=== PATIENT | female | born 2000 | race Caucasian/White ===

== ENCOUNTER 2024-01-10 07:46 | Emergency (ER) | payer BC, SELFPAY ==
[2024-01-10 07:48] VITALS: BP 127/96
--- NOTE | 2024-01-10 08:00 | ED.GENMED ---
History of Present Illness
General
Chief Complaint: Fainting/Passed Out
Source: patient
Exam Limitations: none
Time Seen by Provider: 01/10/24 07:57
Nursing documentation reviewed up to this point in time: agreed with
Travel History
Have you had any contact with someone who has COVID-19?: No
Do you have any symptoms of coronavirus? Fever > 100 degrees, chills, cough, shortness of breath, sore throat, loss of taste or smell, muscle aches, or headache?: No
History of Present Illness
History of Present Illness:
23-year-old female with a past medical history of POTS, irritable bowel syndrome, median arcuate ligament syndrome, Flor-Danlos syndrome, mast cell activation syndrome, anxiety and depression who presents to the emergency department for evaluation
after syncopal event. 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 She says that for the past few days she has been having increased palpitations but she has attributed this to increased anxiety recently. She says that she has been dealing with some
nausea more than usual. Today when she arrived at work she was feeling nauseated and took a dose of Zofran. While she was getting report she said she began to feel dizzy and had a syncopal event. She did fall the ground but fortunately did not
hit her head or injure herself she says. She was brought down to the emergency to be assessed. She says she has had some tightness in her chest since the episode. She denies any shortness of breath. Denies any recent vomiting or diarrhea.
Denies any abdominal pain. Denies any headache. She denies any other complaints. She says she does have frequent episodes of dizziness related to her POTS.
Past History
Past History
ED Past Medical History: Other (POTS), Other (Kidney stones) and Other (Arcuate ligament syndrome, chronic abdominal pain)
ED Past Surgical History: Other (wisdom teeth)
Social History
Tobacco: Non-smoker
Alcohol: None
Drug: None
Personal: Single
Living: with family
Employment: Employed
Family History
Family History: Other (Gallstones)
Review of Systems
Review of Systems
All Other Systems: ROS reviewed and negative except as documented in HPI and ROS
Constitutional: Denies fever or chills
EENT: Denies sore throat or runny nose
Respiratory: Denies cough or trouble breathing
Cardiac: Reports chest pain, palpitations and syncope; Denies diaphoresis
ABD/GI: Reports nausea; Denies abdominal pain, vomiting or diarrhea
: Denies flank pain
Musculoskeletal: Denies neck pain or back pain
Neurological: Denies headache, weakness or numbness
Phy Exam
Physical Exam
Physical Exam:
General: Awake, alert, oriented x3; no acute distress
Head: Normocephalic, atraumatic
Eyes: Conjunctiva normal, pupils equal round and reactive to light bilaterally
Throat: Airway intact, handling secretions
Neck: Trachea midline, supple without meningismus
Lungs: Clear to auscultation bilaterally, no wheezing, rales, rhonchi
Heart: Regular rate and rhythm, no murmurs, gallops, or rubs
Abd: Soft, non distended, nontender
Neuro: Cranial nerves grossly intact, speech fluid
Skin: no rash
Extremities: No edema in extremities, equal pulses in all extremities
Scores
Heart Failure Risk
Heart Failure Risk Score: Not Applicable
Heart Score for Chest Pain Patients
STEMI patient?: Not applicable
Withdrawal Assessment of Alcohol
Withdrawal Assessment Completed?: Not applicable
Course
Orders/Labs/Results
Orders:
Orders
01/10/24 07:52
EKG [Electrocardiogram (*1)] Urgent
Reason for Study: Syncope
EKG- Treatment ONCE
01/10/24 07:57
Test Result ONCE
01/10/24 08:14
CR Chest - 2 Views Urgent
Comment:
Reason For Exam: syncope, chest pain
01/10/24 08:35
Complete Blood Count/With Diff Urgent
Comprehensive Metabolic Panel Urgent
D-Dimer Urgent
HCG, Serum Qualitative Screen Urgent
Troponin I Urgent
Abnormal Lab Results
01/10/24
08:35
BUN 22 H mg/dl
(7-17)
01/10/24 08:35
01/10/24 08:35
Vital Signs
Pulse: 85
Initial and Last Documented VS:
Initial Vital Signs
Temp Pulse Resp BP Pulse Ox
37.1 C 103 16 127/96 100
01/10/24 07:48 01/10/24 07:48 01/10/24 07:48 01/10/24 07:48 01/10/24 07:48
Last Documented Vital Signs
Temp Pulse Resp BP Pulse Ox
37.1 C 76 15 108/67 99
01/10/24 07:48 01/10/24 09:00 01/10/24 09:00 01/10/24 09:00 01/10/24 09:00
MDM/Problems Addressed
Differential Diagnosis Includes:
Orthostatic hypotension/POTS related syncope, vasovagal syncope, symptomatic anemia, electrolyte derangement/dehydration, cardiac arrhythmia
MDM/Problems Addressed:
23-year-old female presents to the emergency room for evaluation after syncopal event�she does have a known history of POTS. She has had some nausea and palpitations for the past few days she says initially she was attributing this to increased
anxiety. She has had some chest tightness since the event. She was mildly tachycardic in triage heart rate in the 80s on my assessment. Rest of vitals normal. Exam as above. EKG shows sinus rhythm with normal QTc, no delta wave, no [place]rug[place], no
signs of acute ischemia�appears similar to prior EKG. Plan to place an IV and send labs including a CBC and CMP. Will check an hCG. Check a troponin and a D-dimer. Will check a chest x-ray. Will monitor on telemetry. Will provide some IV
fluids. Reassess after the above.
Labs reviewed: CBC unremarkable�no anemia. CMP no clinically significant abnormalities. Troponin undetectable. D-dimer negative. hCG negative. Chest x-ray shows no acute disease. Reassuring vitals throughout her ED observation here.
Patient is stable for discharge suspect symptoms may have been POTS related. She follows with Dr. Aceves for cardiology�will discharge and have her follow-up as an outpatient. She feels comfortable this plan. Spoke with return precautions all
questions answered.
Chronic conditions affecting care:
POTS
*Radiology
Radiology exam reviewed: preliminary read by ED provider and radiology read reviewed
*Pulse Oximetry
Patient hypoxic: no
*EKG
Interpreted by ED Provider?: Yes
Comparison EKG: no changes
Heart Rate: 85
Rate: normal
Rhythm: sinus
[place]: normal axis
Interval: normal interval
QRS Pattern: normal QRS
Ischemia: no ischemia
*Critical Care Note
Total Time (30-74mins, 75-104mins- exclusive of procedures): Not Applicable
Data Reviewed
Review of Other/Old Records Reveals: Labs and Records
Source: patient and records
ED Attending Note
-
Portions of this chart may have been created with voice recognition software.� Occasional wrong word or��sound alike� substitutions may have occurred due to the inherent limitations of voice recognition software.
Discharge Plan
Departure
Patient Disposition: Home (Routine Discharge)
Date of Disposition: 01/10/24
Time of Disposition: 09:56
Patient with high blood pressure during this ER visit?: No
Discharge Problem:
Syncope
Instructions: Syncope (Fainting) (DC)
Prescriptions:
No Action
ondansetron 8 mg Tablet,Disintegrating
8 mg PO Q8H PRN (Reason: nausea)
citalopram 20 mg Tablet
20 mg PO DAILY
buspirone 10 mg Tablet
10 mg PO BID
Vitamin B-12
1 tab PO DAILY
Vitamin D3
1 tab PO DAILY
vancomycin [Firvanq] 50 mg/mL Recon Soln
125 mg PO Q6 Qty: 150 0RF
Rx Instructions:
52 more doses to be taken
sucralfate [Carafate] 1 gram tablet
1 g PO ACHS Qty: 30 0RF
Referrals:
Scott Montgomery DO [Family Provider] - Call in 1-3 days for appt
Activity Restrictions/Additional Instructions:
Thank you for visiting the Emergency Department at [facility].
1. Please schedule a follow up appointment as directed. Call first thing tomorrow morning to make an appointment.
2. If indicated, please take your medications as instructed and indicated on discharge paperwork.
3. If any of your symptoms do not improve, or persist, or become more severe within 6-12 hours, please return to the emergency department for further care.
4. Please return to the emergency department if you develop a headache, neck pain/stiffness, fever greater than 100.4F, chest pain, shortness of breath, persistent nausea, vomiting, slurred speech, difficulty walking, numbness/tingling, weakness,
signs of infection or any other symptoms that are worrisome to you.
Please call [phone] if you have any questions.
Interventions
Interventions:
*Risk Screen - Suicide Last Done: 01/10/24 07:48
*General Assessment Last Done: 01/10/24 07:48
*Neglect/Abuse Screening Last Done: 01/10/24 07:48
*ED COVID-19 Vaccine History Last Done: 01/10/24 08:39
ED- Cardiac Assessment Last Done: 01/10/24 09:05
ED- Neurological Assessment Last Done: 01/10/24 09:04
Discharge Date and Time
Print Language: MALIAN
[2024-01-10 08:25] VITALS: BMI 24.2
[2024-01-10 08:37] VITALS: BP 120/67
[2024-01-10 08:55] LABS: % Basophils 0.6 % (0-2); % Eosinophils 2.1 % (0-6); % Immature Granulocytes 0.2 % (0-0.5); % Lymphocytes 36.8 % (20.5-51.1); % Monocytes 7.5 % (1.7-9.3); % Neutrophils 52.8 % (42.2-75.2); Absolute Eosinophils 0.1 10^3/uL (0-0.7); Absolute Lymphocytes 1.8 10^3/uL (1.2-3.4); Absolute Monocytes 0.4 10^3/uL (0.1-0.6); Absolute Neutrophils 2.5 10^3/uL (1.4-6.5); Hematocrit 38.2 % (37.0-47.0); Hemoglobin 12.7 g/dL (12.0-16.0); Mean Corp Hgb Conc. 33.2 g/dL (33.0-37.0); Mean Corpuscular Hgb 27.5 pg (27.0-31.0); Mean Corpuscular Volume 82.7 fL (81.0-99.0); Mean Platelet Volume 9.5 fL (7.4-10.4); Nucleated Red Blood Cells % 0 %; Platelet Count 228 10^3/uL (130-400); Red Blood Cell Count 4.62 10^6/uL (4.20-5.40); Red Cell Dist. Width 12.4 % (11.5-14.5); White Blood Cell Count 4.8 10^3/uL (4.8-10.8)
[2024-01-10 09:00] VITALS: BP 108/67
[2024-01-10 09:11] LABS: ALT (SGPT) 13 U/L (0-35); AST (SGOT) 20 U/L (14-36); Albumin 4.2 g/dl (3.5-5.0); Alkaline Phosphatase 66 U/L (38-126); Blood Urea Nitrogen 22 mg/dl (7-17); Calcium 9.1 mg/dl (8.4-10.2); Carbon Dioxide 25 mmol/L (22-30); Chloride 106 mmol/L (98-107); Estimated Creatinine Clearance 103 ml/min; Glucose 95 mg/dl (70-99); Potassium 3.6 mmol/L (3.5-5.1); Sodium 136 mmol/L (135-145); Total Bilirubin 0.5 mg/dl (0.2-1.3); Total Protein 6.6 g/dl (6.3-8.2); eGFR > 60.00
[2024-01-10 09:16] LABS: HCG, Serum Qualitative Screen Negative
[2024-01-10 09:23] LABS: Troponin I < 0.012 ng/ml
[2024-01-10 09:49] LABS: D-Dimer < 0.27 ug/mlFEU (0.00-0.50)
[2024-01-10 10:20] VITALS: BP 113/71
== END 2024-01-10 10:22 | disposition home or self-care (01) ==
LOC: EMR 07:46
PROVIDERS: EMERGENCY PHYSICIAN Emergency Medicine; FAMILY PHYSICIAN Family Medicine Sports Medicine
DX: R55 Syncope and collapse (principal); R11.0 Nausea; R07.9 Chest pain, unspecified; R00.2 Palpitations; W19.XXXA Unspecified fall, initial encounter; G90.A Postural orthostatic tachycardia syndrome [POTS]
CPT/HCPCS: 99285; 71046; 80053; 84484; 84703; 85025; 85379; 93005

== ENCOUNTER 2024-03-02 01:43 | Emergency (ER) | payer BC, SELFPAY ==
[2024-03-02] VITALS (9 sets, daily range): BP systolic 98–121; BP diastolic 62–85
--- NOTE | 2024-03-02 02:23 | ED.GENMED ---
History of Present Illness
<Jaycob Leigh, DO - Last Filed: 03/03/24 08:46>
General
Chief Complaint: Abdominal Pain
Source: patient
Exam Limitations: none
Time Seen by Provider: 03/02/24 02:18
Travel History
Have you had any contact with someone who has COVID-19?: No
Do you have any symptoms of coronavirus? Fever > 100 degrees, chills, cough, shortness of breath, sore throat, loss of taste or smell, muscle aches, or headache?: No
History of Present Illness
History of Present Illness:
See MDM
Past History
<Jaycob Leigh, DO - Last Filed: 03/03/24 08:46>
Past History
ED Past Medical History: Other (POTS), Other (Kidney stones) and Other (Arcuate ligament syndrome, chronic abdominal pain)
ED Past Surgical History: Other (wisdom teeth)
Social History
Tobacco: Non-smoker
Alcohol: None
Drug: None
Personal: Single
Living: with family
Employment: Employed
Family History
Family History: Other (Gallstones)
Phy Exam
<Jaycob Leigh, DO - Last Filed: 03/03/24 08:46>
Physical Exam
Physical Exam:
See MDM
Course
<Jaycob Leigh, DO - Last Filed: 03/03/24 08:46>
Orders/Labs/Results
Orders:
Orders
03/02/24 02:22
Test Result ONCE
03/02/24 02:23
CT Abd/pelvis W Iv Cont Urgent
Comment: hx of median arcuate ligamant syndrome
Reason For Exam: mid upper abd pain
Complete Blood Count/With Diff Urgent
Comprehensive Metabolic Panel Urgent
HCG, Serum Qualitative Screen Urgent
Lipase Urgent
0.9% Sodium Chloride 1000 ml [Nss] 1,000 ml IV BOLUS
HYDROmorphone [Dilaudid] 0.5 mg IV NOW STA
Ketorolac [Toradol] 30 mg IV NOW STA
Ondansetron Injectable [Zofran] 4 mg IV NOW STA
03/02/24 04:42
Urinalysis Reflex To Culture Urgent
Date Specimen was Collected: 03/02/24
Time Specimen was Collected: 04:41
Abnormal Lab Results
03/02/24
02:23
MCV 79.5 L fL
(81.0-99.0)
Neutrophils % 42.1 L %
(42.2-75.2)
BUN 23 H mg/dl
(7-17)
03/02/24 02:23
03/02/24 02:23
Vital Signs
Initial and Last Documented VS:
Initial Vital Signs
Temp Pulse Resp BP Pulse Ox
98.0 F 95 22 121/82 100
03/02/24 01:46 03/02/24 01:46 03/02/24 01:46 03/02/24 01:46 03/02/24 01:46
Last Documented Vital Signs
Temp Pulse Resp BP Pulse Ox
98 F 72 18 98/62 98
03/02/24 06:36 03/02/24 06:36 03/02/24 06:36 03/02/24 06:36 03/02/24 06:36
<Guido Monk, DO - Last Filed: 03/02/24 06:33>
Orders/Labs/Results
Orders:
Orders
03/02/24 02:22
Test Result ONCE
03/02/24 02:23
CT Abd/pelvis W Iv Cont Urgent
Comment: hx of median arcuate ligamant syndrome
Reason For Exam: mid upper abd pain
Complete Blood Count/With Diff Urgent
Comprehensive Metabolic Panel Urgent
HCG, Serum Qualitative Screen Urgent
Lipase Urgent
0.9% Sodium Chloride 1000 ml [Nss] 1,000 ml IV BOLUS
HYDROmorphone [Dilaudid] 0.5 mg IV NOW STA
Ketorolac [Toradol] 30 mg IV NOW STA
Ondansetron Injectable [Zofran] 4 mg IV NOW STA
03/02/24 04:42
Urinalysis Reflex To Culture Urgent
Date Specimen was Collected: 03/02/24
Time Specimen was Collected: 04:41
Abnormal Lab Results
03/02/24
02:23
MCV 79.5 L fL
(81.0-99.0)
Neutrophils % 42.1 L %
(42.2-75.2)
BUN 23 H mg/dl
(7-17)
03/02/24 02:23
03/02/24 02:23
Vital Signs
Initial and Last Documented VS:
Initial Vital Signs
Temp Pulse Resp BP Pulse Ox
98.0 F 95 22 121/82 100
03/02/24 01:46 03/02/24 01:46 03/02/24 01:46 03/02/24 01:46 03/02/24 01:46
Last Documented Vital Signs
Temp Pulse Resp BP Pulse Ox
98 F 72 18 98/62 98
03/02/24 06:36 03/02/24 06:36 03/02/24 06:36 03/02/24 06:36 03/02/24 06:36
<Jaycob Leigh, DO - Last Filed: 03/03/24 08:46>
MDM/Problems Addressed
Differential Diagnosis Includes:
HPI and MDM Narrative:
23-year-old female presenting with mid upper abdominal pain. This is a chronic issue for the patient but states that it has progressively gotten the past several hours. She does have a history of median arcuate ligament syndrome and is unsure if
this is a flareup. She has followed with a specialist in [place]. They are talking about surgery at some point.
Patient is uncomfortable on exam. She does have mid abdominal tenderness. No significant rebound. Given her history, will obtain CT
Physical exam
General: Mildly uncomfortable
HEENT: protecting airway. Dry mucous membranes
Neck: appears supple
CV: No evidence of cyanosis
Resp: No accessory muscle use
Abd: Non-distended. Mid abdominal tenderness without rebound
Extremities: No deformities
Neuro: alert
Psych: Normal affect
Skin: Intact
Problems Addressed including Acute and Chronic Conditions affecting care:
1. Abdominal pain
Acuity: acute
Prognosis: stable
Details: Will give dose of Dilaudid and Toradol. Given her prior medical history, will obtain CT abdomen/pelvis
2. Dehydration
Acuity: acute
Prognosis: stable
Details: Will give IV fluids
3. Nausea
Acuity: acute
Prognosis: stable
Details: Will give Zofran
Differential Diagnosis (but not limited to): Median arcuate ligament syndrome, pancreatitis, colitis
Testing considered: Right upper quadrant ultrasound
Drug therapy (if applicable): OTC meds, please see d/c instruction regarding Rx drugs
Amount and/or Complexity of Data Reviewed
Clinical info obtained from: Patient
External data reviewed: N/A
Labs I independently reviewed (but not limited to): WBC normal
Radiology: The CT scan was personally and independently reviewed. In addition, official CT report reviewed.
Pulse Ox: not hypoxic
EKG independently reviewed: N/A
Installation Helper: N/A
Critical Care: N/A
Risk of Complication:
Social Determinants of health: Good social support
Discussed with other providers: N/A
Escalation of Care includes Admit/Obs: After being observed in the Emergency Department, pt stable for discharge.
Occasional wrong word or 'sound a like' substitutions may have occurred due to the inherent limitations of voice recognition software. Read the chart carefully and recognize, using context, where substitutions have occurred.
<Jaycob Leigh, DO - Last Filed: 03/03/24 08:46>
*Critical Care Note
Total Time (30-74mins, 75-104mins- exclusive of procedures): Not Applicable
<Guido Monk, DO - Last Filed: 03/02/24 06:33>
*Radiology
Radiology exam reviewed: preliminary read by ED provider
<Guido Monk, DO - Last Filed: 03/02/24 06:33>
Update Note
Update Note:
CT abdomen and pelvis with IV contrast
IMPRESSION:
Mild bilateral hydronephrosis without stone. Bladder wall thickening. Correlate with urinalysis and patient's symptoms.
No bowel obstruction. Splenomegaly. No cholecystitis or pancreatitis. Abdominal aorta is of normal caliber. Lung bases are clear. Appendix is not visualized.
03/02/2024 0612 AM patient is resting comfortably, no acute distress. Patient has no tenderness to palpation in the abdomen. Urinalysis is negative.. Patient has no further questions at this time and wishes to be discharged. I did discuss CT scan
findings with patient. Though she has no urinary symptoms we discussed a one-time dose of antibiotics. She wishes to be excused to follow-up with her family doctor.
ED Attending Note
<Jaycob Leigh, DO - Last Filed: 03/03/24 08:46>
-
Portions of this chart may have been created with voice recognition software.� Occasional wrong word or��sound alike� substitutions may have occurred due to the inherent limitations of voice recognition software.
Discharge Plan
Departure
Patient Disposition: Home (Routine Discharge)
Date of Disposition: 03/02/24
Time of Disposition: 06:15
Patient with high blood pressure during this ER visit?: Yes
Condition: Good
Discharge Problem:
Abdominal pain, Median arcuate ligament syndrome
Instructions: Abdominal Pain
Prescriptions:
No Action
ondansetron 8 mg Tablet,Disintegrating
8 mg PO Q8H PRN (Reason: nausea)
citalopram 20 mg Tablet
20 mg PO DAILY
buspirone 10 mg Tablet
10 mg PO BID
Vitamin B-12
1 tab PO DAILY
Vitamin D3
1 tab PO DAILY
vancomycin [Firvanq] 50 mg/mL Recon Soln
125 mg PO Q6 Qty: 150 0RF
Rx Instructions:
52 more doses to be taken
sucralfate [Carafate] 1 gram tablet
1 g PO ACHS Qty: 30 0RF
Referrals:
Scott Montgomery DO [Family Provider] -
Stand Alone Forms: Return to Work
Activity Restrictions/Additional Instructions:
As discussed, please return to the emergency department should you develop any signs or symptoms of urinary tract infection. If you have any questions please do not hesitate to call.
It was a pleasure meeting you and taking part in your care. We hope for your continued healing and wellness.
Please read discharge instructions in their entirety. However, they are for general education and may not describe your exact diagnosis at discharge. Information on your ER visit and medical conditions were discussed with you along with appropriate
follow up information...
If indicated, please take your medications as instructed and indicated on discharge paperwork.
Please schedule a follow up appointment as directed. Call to schedule an appointment
Please return to the emergency department with ANY change in, persisting, or worsening of symptoms. If any of your symptoms do not improve, or persist, or become more severe within 6-12 hours, please return to the emergency department for further
care.
Please return to the emergency department if you develop a headache, neck pain/stiffness, fever greater than 100.4F, chest pain, shortness of breath, persistent nausea, vomiting, slurred speech, difficulty walking, numbness/tingling, weakness, signs
of infection or any other symptoms that are worrisome to you.
If you have any questions or concerns please do not hesitate to call the Hospital at or E-mail me directly at [email or web address]
Interventions
Interventions:
*Risk Screen - Suicide Last Done: 03/02/24 01:46
*General Assessment Last Done: 03/02/24 01:46
*Neglect/Abuse Screening Last Done: 03/02/24 01:46
ED- Fall Risk Assessment Last Done: 03/02/24 01:46
*ED COVID-19 Vaccine History Last Done: 03/02/24 01:46
*Nursing Disposition Last Done: 03/02/24 06:36
BJ-Jqnkxr-Jnrtoecwrm Assessment Last Done: 03/02/24 02:25
Discharge Date and Time
Discharge Date/Time: 03/02/24 06:37
Print Language: SAMMARINESE
[2024-03-02] MEDS: ZOFRAN 4 MG IV (02:31)
[2024-03-02] MEDS: NSS 1000 IV (02:31)
[2024-03-02 02:32] LABS: % Basophils 0.6 % (0-2); % Eosinophils 2.3 % (0-6); % Immature Granulocytes 0.3 % (0-0.5); % Lymphocytes 47.3 % (20.5-51.1); % Monocytes 7.4 % (1.7-9.3); % Neutrophils 42.1 % (42.2-75.2); Absolute Eosinophils 0.2 10^3/uL (0-0.7); Absolute Lymphocytes 3.2 10^3/uL (1.2-3.4); Absolute Monocytes 0.5 10^3/uL (0.1-0.6); Absolute Neutrophils 2.8 10^3/uL (1.4-6.5); Hematocrit 37.3 % (37.0-47.0); Hemoglobin 12.9 g/dL (12.0-16.0); Mean Corp Hgb Conc. 34.6 g/dL (33.0-37.0); Mean Corpuscular Hgb 27.5 pg (27.0-31.0); Mean Corpuscular Volume 79.5 fL (81.0-99.0); Mean Platelet Volume 9.2 fL (7.4-10.4); Nucleated Red Blood Cells % 0 %; Platelet Count 268 10^3/uL (130-400); Red Blood Cell Count 4.69 10^6/uL (4.20-5.40); Red Cell Dist. Width 12.7 % (11.5-14.5); White Blood Cell Count 6.7 10^3/uL (4.8-10.8)
[2024-03-02] MEDS: DILAUDID 0.5 MG IV (02:32)
[2024-03-02] MEDS: TORADOL 30 MG IV (02:32)
[2024-03-02 02:46] LABS: HCG, Serum Qualitative Screen Negative
[2024-03-02 02:58] LABS: ALT (SGPT) 12 U/L (0-35); AST (SGOT) 22 U/L (14-36); Albumin 4.6 g/dl (3.5-5.0); Alkaline Phosphatase 77 U/L (38-126); Blood Urea Nitrogen 23 mg/dl (7-17); Calcium 9.4 mg/dl (8.4-10.2); Carbon Dioxide 25 mmol/L (22-30); Chloride 105 mmol/L (98-107); Glucose 94 mg/dl (70-99); Lipase 144 U/L (23-300); Potassium 3.5 mmol/L (3.5-5.1); Sodium 139 mmol/L (135-145); Total Bilirubin 0.4 mg/dl (0.2-1.3); Total Protein 7.3 g/dl (6.3-8.2); eGFR > 60.00
[2024-03-02 04:49] LABS: Urine Albumin Negative (Neg - Trace); Urine Bilirubin Negative (Negative); Urine Character Clear (Clear); Urine Color Yellow; Urine Glucose Negative (Negative); Urine Ketone Negative (Negative); Urine Leukocyte Negative (Negative); Urine Nitrite Negative (Negative); Urine Occult Blood Negative (Negative); Urine Urobilinogen Negative (Neg - 1+)
== END 2024-03-02 06:37 | disposition home or self-care (01) ==
LOC: EMR 01:43
PROVIDERS: Student in an Organized Health Care Education/Training Program; EMERGENCY PHYSICIAN Student in an Organized Health Care Education/Training Program; FAMILY PHYSICIAN Family Medicine Sports Medicine
DX: R10.9 Unspecified abdominal pain (principal); I77.4 Celiac artery compression syndrome; R03.0 Elevated blood-pressure reading, without diagnosis of hypertension
CPT/HCPCS: 99285; 96374; 96375 ×2; 96361; 74177; 80053; 81003; 83690; 84703; 85025; Q9967

== ENCOUNTER 2024-05-02 08:49 | Emergency (ER) | payer BC, SELFPAY ==
[2024-05-02 09:03] VITALS: BP 121/79
[2024-05-02 09:15] VITALS: BMI 22.9
[2024-05-02 10:03] VITALS: BP 104/76; BP 112/88; BP 119/75; PULSE 108; PULSE 94; PULSE 98
[2024-05-02] MEDS: TYLENOL 650 MG PO (10:15)
[2024-05-02] MEDS: NSS 500 IV (10:15)
--- NOTE | 2024-05-02 10:19 | ED.GENMED ---
History of Present Illness
General
Chief Complaint: Fainting/Passed Out
Source: patient
Exam Limitations: none
Time Seen by Provider: 05/02/24 09:16
Nursing documentation reviewed up to this point in time: agreed with
History of Present Illness
History of Present Illness:
Patient with history of POTS, who has had multiple syncopal episodes in the past, presents to ED secondary to recurrent dizziness, palpitations, followed by brief episode of syncope, while she was at work today. Patient states that when she got up
this morning, she was experiencing mild headache and generalized weakness/achiness, which she has experienced in the past. 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
When she went to the bathroom, she noticed that she was 'pale' and felt as though she may pass out. She walked out of the bathroom and told her coworkers that she may pass out, prior to feeling dizzy. Patient was told that she felt backwards and
to her side, hitting her head in the process. Patient denies any confusion when she woke up. Denies loss of sensation or weakness. Denies urinary or bowel incontinence. Denies tongue biting. Denies recent illness. Denies recent change in
medications or diet. She was diagnosed with POTS when she was a teenager, and was taking Florinef, which was discontinued when her symptoms improved. Recently, medication was restarted, but due to side effects, i.e. neurological symptoms, it was
discontinued.
Past History
Past History
ED Past Medical History: Other (POTS), Other (Kidney stones) and Other (Arcuate ligament syndrome, chronic abdominal pain)
ED Past Surgical History: Other (wisdom teeth)
Social History
Tobacco: Non-smoker
Alcohol: None
Drug: None
Personal: Single
Living: with family
Employment: Employed
Family History
Family History: Other (Gallstones)
Review of Systems
Review of Systems
Allergies reviewed?: Yes
All Other Systems: ROS reviewed and negative except as documented in HPI and ROS
Constitutional: Reports no symptoms; Denies fever or chills
Respiratory: Reports no symptoms; Denies trouble breathing
Cardiac: Reports palpitations and syncope; Denies chest pain
ABD/GI: Reports nausea; Denies abdominal pain
: Reports no symptoms; Denies incontinence
Musculoskeletal: Reports no symptoms
Skin: Reports no symptoms
Neurological: Reports dizzy and headache
Phy Exam
Physical Exam
Physical Exam:
Physical Exam
General: no apparent distress, not acutely ill. afebrile.
Head: nc/at. eomi
Neck: supple. no meningeal signs. negative Kernig's and Brudzinski sign
Heart: s1/s2 regular rate and rhythm, no murmur. equal radial pulses.
Lungs: no acute respiratory distress. clear bilaterally
Abdomen: normal bowel sounds. not tender.
Neuro: alert and oriented. no focal neurological deficits
Skin: no rash
Psychiatric: well kept. interactive and cooperative
Extremities: no edema. no calf tenderness.
Course
Orders/Labs/Results
Orders:
Orders
05/02/24 09:45
Electrocardiogram (*1) Urgent
Reason for Study: Syncope
EKG- Treatment ONCE
Orthostatic VS- Treatment ONCE
05/02/24 09:46
0.9% Sodium Chloride 500 ml [Nss] 500 ml IV BOLUS
Acetaminophen [Tylenol] 650 mg PO NOW STA
Test Result ONCE
05/02/24 10:03
Basic Metabolic Panel Urgent
Complete Blood Count/With Diff Urgent
HCG, Serum Qualitative Screen Urgent
Magnesium Urgent
TSH Urgent
Troponin I Urgent
05/02/24 10:20
Urinalysis Reflex To Culture Urgent
Date Specimen was Collected: 05/02/24
Time Specimen was Collected: 10:09
Abnormal Lab Results
05/02/24
10:03
BUN 19 H mg/dl
(7-17)
05/02/24 10:03
05/02/24 10:03
Vital Signs
Initial and Last Documented VS:
Initial Vital Signs
Temp Pulse Resp BP Pulse Ox
98.2 F 95 16 121/79 98
05/02/24 09:03 05/02/24 09:03 05/02/24 09:03 05/02/24 09:03 05/02/24 09:03
Last Documented Vital Signs
Temp Pulse Resp BP Pulse Ox
98.2 F 78 18 99/61 97
05/02/24 09:03 05/02/24 12:01 05/02/24 12:01 05/02/24 12:01 05/02/24 12:01
MDM/Problems Addressed
MDM/Problems Addressed:
Patient remains asymptomatic and hemodynamically stable during observation ED, along with an unremarkable workup. Patient with a likely recurrent episodes related to underlying POTS, but difficult to exclude potential other etiology, with her
complex medical history. Patient will be discharged home at this time, with recommendation to follow-up with her primary care physician and surveyor helper, regarding her recurrent episode, including potential discussion for medication treatment, i.e.
midodrine versus Florinef. Patient expresses understanding at time of discharge.
*EKG
Interpreted by ED Provider?: Yes
EKG Intrepretation Date: 05/02/24
Heart Rate: 3
Rate: normal
Rhythm: sinus
Shelby: normal axis
Interval: normal interval
*Critical Care Note
Total Time (30-74mins, 75-104mins- exclusive of procedures): Not Applicable
ED Attending Note
-
Portions of this chart may have been created with voice recognition software.� Occasional wrong word or��sound alike� substitutions may have occurred due to the inherent limitations of voice recognition software.
Discharge Plan
Departure
Patient Disposition: Home (Routine Discharge)
Date of Disposition: 05/02/24
Time of Disposition: 11:47
Patient with high blood pressure during this ER visit?: Yes
Condition: Good
Discharge Problem:
Syncope
Instructions: Syncope (Fainting) (DC)
Prescriptions:
No Action
ondansetron 8 mg Tablet,Disintegrating
8 mg PO Q8H PRN (Reason: nausea)
citalopram 20 mg Tablet
20 mg PO DAILY
buspirone 10 mg Tablet
10 mg PO BID
Vitamin B-12
1 tab PO DAILY
Vitamin D3
1 tab PO DAILY
vancomycin [Firvanq] 50 mg/mL Recon Soln
125 mg PO Q6 Qty: 150 0RF
Rx Instructions:
52 more doses to be taken
sucralfate [Carafate] 1 gram tablet
1 g PO ACHS Qty: 30 0RF
Referrals:
Guido Aceves MD [Active] -
Scott Montgomery DO [Family Provider] -
Activity Restrictions/Additional Instructions:
As discussed, please follow-up with your primary care physician and/or surveyor helper for further evaluation and treatment.
Interventions
Interventions:
*Risk Screen - Suicide Last Done: 05/02/24 11:08
*General Assessment Last Done: 05/02/24 09:15
*Neglect/Abuse Screening Last Done: 05/02/24 11:08
ED- Fall Risk Assessment Last Done: 05/02/24 12:05
*ED COVID-19 Vaccine History Last Done: 05/02/24 11:08
*Nursing Disposition Last Done: 05/02/24 12:05
ED- Cardiac Assessment Last Done: 05/02/24 12:02
ED- Neurological Assessment Last Done: 05/02/24 09:15
Discharge Date and Time
Discharge Date/Time: 05/02/24 12:06
Print Language: [place]
[2024-05-02 10:32] LABS: HCG, Serum Qualitative Screen Negative
[2024-05-02 10:36] LABS: Blood Urea Nitrogen 19 mg/dl (7-17); Calcium 9.5 mg/dl (8.4-10.2); Carbon Dioxide 24 mmol/L (22-30); Chloride 105 mmol/L (98-107); Estimated Creatinine Clearance > 125 ml/min; Glucose 99 mg/dl (70-99); Magnesium 1.7 mg/dl (1.6-2.3); Potassium 3.9 mmol/L (3.5-5.1); Sodium 139 mmol/L (135-145); eGFR > 60.00
[2024-05-02 10:44] LABS: % Basophils 0.5 % (0-2); % Eosinophils 2.1 % (0-6); % Immature Granulocytes 0.2 % (0-0.5); % Lymphocytes 28.2 % (20.5-51.1); % Monocytes 6.3 % (1.7-9.3); % Neutrophils 62.7 % (42.2-75.2); Absolute Eosinophils 0.1 10^3/uL (0-0.7); Absolute Lymphocytes 1.6 10^3/uL (1.2-3.4); Absolute Monocytes 0.4 10^3/uL (0.1-0.6); Absolute Neutrophils 3.6 10^3/uL (1.4-6.5); Hematocrit 38.5 % (37.0-47.0); Hemoglobin 13.1 g/dL (12.0-16.0); Mean Corpuscular Hgb 27.9 pg (27.0-31.0); Mean Corpuscular Volume 82.1 fL (81.0-99.0); Mean Platelet Volume 9.6 fL (7.4-10.4); Nucleated Red Blood Cells % 0 %; Platelet Count 271 10^3/uL (130-400); Red Blood Cell Count 4.69 10^6/uL (4.20-5.40); Red Cell Dist. Width 12.2 % (11.5-14.5); White Blood Cell Count 5.8 10^3/uL (4.8-10.8)
[2024-05-02 10:45] LABS: Troponin I < 0.012 ng/ml
[2024-05-02 10:51] LABS: Urine Albumin Negative (Neg - Trace); Urine Bilirubin Negative (Negative); Urine Character Clear (Clear); Urine Color Yellow; Urine Glucose Negative (Negative); Urine Ketone Negative (Negative); Urine Leukocyte Negative (Negative); Urine Nitrite Negative (Negative); Urine Occult Blood Negative (Negative); Urine Urobilinogen Negative (Neg - 1+); Urine pH 6.5 (5.0-9.0)
[2024-05-02 11:09] LABS: TSH 0.97 uIU/ml (0.47-4.68)
[2024-05-02 12:01] VITALS: BP 99/61
== END 2024-05-02 12:06 | disposition home or self-care (01) ==
LOC: EMR 08:49
PROVIDERS: EMERGENCY PHYSICIAN Emergency Medicine; FAMILY PHYSICIAN Family Medicine Sports Medicine
DX: R55 Syncope and collapse (principal); G90.A Postural orthostatic tachycardia syndrome [POTS]; Z87.442 Personal history of urinary calculi
CPT/HCPCS: 99283; 80048; 81003; 83735; 84443; 84484; 84703; 85025; 93005

== ENCOUNTER 2024-09-25 22:19 | Emergency (ER) | payer BC, SELFPAY ==
[2024-09-25 22:24] VITALS: BP 139/89
[2024-09-25 22:40] VITALS: BP 125/76
[2024-09-25 22:58] VITALS: BMI 24.1
[2024-09-25 23:09] LABS: % Basophils 0.4 % (0-2); % Eosinophils 1.2 % (0-6); % Immature Granulocytes 0.3 % (0-0.5); % Lymphocytes 35.5 % (20.5-51.1); % Monocytes 5.9 % (1.7-9.3); % Neutrophils 56.7 % (42.2-75.2); Absolute Eosinophils 0.1 10^3/uL (0-0.7); Absolute Lymphocytes 3.2 10^3/uL (1.2-3.4); Absolute Monocytes 0.5 10^3/uL (0.1-0.6); Hemoglobin 13.6 g/dL (12.0-16.0); Mean Corp Hgb Conc. 33.2 g/dL (33.0-37.0); Mean Corpuscular Hgb 27.7 pg (27.0-31.0); Mean Corpuscular Volume 83.5 fL (81.0-99.0); Nucleated Red Blood Cells % 0 %; Platelet Count 320 10^3/uL (130-400); Red Blood Cell Count 4.91 10^6/uL (4.20-5.40); Red Cell Dist. Width 12.5 % (11.5-14.5); White Blood Cell Count 8.9 10^3/uL (4.8-10.8)
[2024-09-25 23:10] LABS: Urine Albumin Negative (Neg - Trace); Urine Bilirubin Negative (Negative); Urine Character Clear (Clear); Urine Color Yellow; Urine Glucose Negative (Negative); Urine Ketone 2+ (Negative); Urine Leukocyte Negative (Negative); Urine Nitrite Negative (Negative); Urine Occult Blood Negative (Negative); Urine Specific Gravity 1.025 (<1.030); Urine Urobilinogen Negative (Neg - 1+)
[2024-09-25 23:34] LABS: Troponin I < 0.012 ng/ml
[2024-09-26] VITALS: BP 118/71
[2024-09-26 00:43] LABS: ALT (SGPT) 15 U/L (0-35); AST (SGOT) 28 U/L (14-36); Albumin 4.2 g/dl (3.5-5.0); Alkaline Phosphatase 63 U/L (38-126); Blood Urea Nitrogen 19 mg/dl (7-17); Calcium 8.7 mg/dl (8.4-10.2); Carbon Dioxide 26 mmol/L (22-30); Chloride 104 mmol/L (98-107); Estimated Creatinine Clearance > 125 ml/min; Glucose 122 mg/dl (70-99); Potassium 4.2 mmol/L (3.5-5.1); Sodium 138 mmol/L (135-145); Total Bilirubin 0.4 mg/dl (0.2-1.3); Total Protein 6.8 g/dl (6.3-8.2); eGFR > 60.00
[2024-09-26] MEDS: NSS 500 IV (00:58)
[2024-09-26 01:00] VITALS: BP 110/76
[2024-09-26 01:40] VITALS: BP 121/75
--- NOTE | 2024-09-26 02:05 | ED.GENMED ---
History of Present Illness
General
Chief Complaint: Seizure
Source: patient and records
Exam Limitations: none
Nursing documentation reviewed up to this point in time: agreed with
History of Present Illness
History of Present Illness:
23-year-old female history of POTS, orthostatic hypotension, median arcuate ligament syndrome, with chronic abdominal pain, presents with syncope versus seizure x 2. Just prior to arrival witnessed by boyfriend, no chest pain no shortness of breath
no palpitations no fever no bowel or bladder incontinence no head strike no period of post episode confusion,
Past History
Past History
ED Past Medical History: Other (POTS), Other (Kidney stones) and Other (Arcuate ligament syndrome, chronic abdominal pain)
ED Past Surgical History: Other (wisdom teeth)
Social History
Tobacco: Non-smoker
Alcohol: None
Drug: None
Personal: Single
Living: with family
Employment: Employed
Family History
Family History: Other (Gallstones)
Review of Systems
Review of Systems
All Other Systems: Not applicable
Constitutional: Denies fever or fatigue
EENT: Reports no symptoms
Respiratory: Reports no symptoms
Cardiac: Reports syncope
ABD/GI: Reports abdominal pain and nausea
: Reports no symptoms
Musculoskeletal: Reports no symptoms
Skin: Reports no symptoms
Neurological: Reports no symptoms
Phy Exam
Physical Exam
Physical Exam:
Physical Exam
General: no apparent distress, not acutely ill
Neck: No tongue bite
Heart: s1/s2 regular rate and rhythm, no murmur. equal radial pulses.
Lungs: no acute respiratory distress. clear bilaterally
Abdomen: Nontender
Neuro: alert and oriented. no focal neurological deficits
Skin: no rash
Psychiatric: well kept. interactive and cooperative
Extremities: no edema.
Course
Orders/Labs/Results
Orders:
Orders
09/25/24 22:22
Electrocardiogram (*1) Urgent
Reason for Study: Other
Other Reason for Exam: Possible Stroke
Cardiac Monitoring- Treatment ONCE
IV Insert/Care/Rem.- Treatment PRN
Vital Signs As Directed
Frequency: Other
Weight As Directed
Frequency: Once
Comment: ZERO STRETCHER SCALE FOR ACCURATE WEIGHT
O2 Therapy [RESP] Urgent
Titrate/Wean O2 to maintain O2 sat greater than (%): 93
Special Instructions: MAINTAIN CONTINUOUS O2 SATS > OR = 93%
09/25/24 22:23
EKG- Treatment ONCE
09/25/24 22:57
Complete Blood Count/With Diff Urgent
Troponin I Urgent
Urinalysis Reflex To Culture Urgent
Date Specimen was Collected: 09/25/24
Time Specimen was Collected: 22:23
09/25/24 23:53
Comprehensive Metabolic Panel Urgent
09/26/24 01:00
0.9% Sodium Chloride 500 ml [Nss] 500 ml IV Wide Open mls/hr
09/26/24 01:38
Add On- LAB Urgent
Comments:: HCG
Tests Added?: HCG
Abnormal Lab Results
09/25/24 09/26/24
22:57 00:01
BUN 19 H mg/dl
(7-17)
Glucose 122 H mg/dl
(70-99)
Urine Ketones 2+ A
(Negative)
09/25/24 22:57
09/26/24 00:01
Vital Signs
Initial and Last Documented VS:
Initial Vital Signs
Temp Pulse Resp BP Pulse Ox
98.1 F 111 18 139/89 98
09/25/24 22:24 09/25/24 22:24 09/25/24 22:24 09/25/24 22:24 09/25/24 22:24
Last Documented Vital Signs
Temp Pulse Resp BP Pulse Ox
98.1 F 80 16 121/75 99
09/25/24 22:24 09/26/24 01:39 09/26/24 01:39 09/26/24 01:40 09/26/24 01:39
MDM/Problems Addressed
Differential Diagnosis Includes:
Syncope vasovagal arrhythmia doubt seizure
MDM/Problems Addressed:
Syncope
Chronic conditions affecting care:
POTS chronic abdominal
Acute Exacerbation and/or Progression of Chronic Illness:
POTS chronic abdominal
*Pulse Oximetry
Patient hypoxic: no
*EKG
Interpreted by ED Provider?: Yes
Interpretation: normal
Comparison EKG: no comparison EKG present
Heart Rate: 100
Rate: normal
QRS Pattern: normal QRS
Ischemia: no ischemia
*Baker Apprentice Interpretation
Rate: normal
Interpretation: normal
Heart Rate: 98
Rhythm: sinus
*Critical Care Note
Total Time (30-74mins, 75-104mins- exclusive of procedures): Not Applicable
Data Reviewed
Review of Other/Old Records Reveals: Labs, Radiology Studies and Discharge Summary
Source: patient
Update Note
Update Note:
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
ED Attending Note
-
Portions of this chart may have been created with voice recognition software.� Occasional wrong word or��sound alike� substitutions may have occurred due to the inherent limitations of voice recognition software.
Discharge Plan
Departure
Patient Disposition: Home (Routine Discharge)
Date of Disposition: 09/26/24
Time of Disposition: 01:43
Patient with high blood pressure during this ER visit?: No
Condition: Good
Discharge Problem:
Syncope and collapse
Instructions: Syncope (Fainting) (DC)
Prescriptions:
No Action
ondansetron 8 mg Tablet,Disintegrating
8 mg PO Q8H PRN (Reason: nausea)
citalopram 20 mg Tablet
20 mg PO DAILY
buspirone 10 mg Tablet
10 mg PO BID
Vitamin B-12
1 tab PO DAILY
Vitamin D3
1 tab PO DAILY
vancomycin [Firvanq] 50 mg/mL Recon Soln
125 mg PO Q6 Qty: 150 0RF
Rx Instructions:
52 more doses to be taken
sucralfate [Carafate] 1 gram tablet
1 g PO ACHS Qty: 30 0RF
Referrals:
Scott Montgomery DO [Family Provider] -
Activity Restrictions/Additional Instructions:
Drink plenty of fluids, follow-up with your primary care provider
Interventions
Interventions:
*Risk Screen - Suicide Last Done: 09/25/24 22:24
*General Assessment Last Done: 09/25/24 22:24
*Neglect/Abuse Screening Last Done: 09/25/24 22:24
ED- Fall Risk Assessment Last Done: 09/25/24 23:05
*ED COVID-19 Vaccine History Last Done: 09/25/24 22:24
*Nursing Disposition Last Done: 09/26/24 01:55
ED- Cardiac Assessment Last Done: 09/25/24 23:05
ED- Neurological Assessment Last Done: 09/25/24 23:05
ED- Pulmonary Assessment Last Done: 09/25/24 23:05
Discharge Date and Time
Discharge Date/Time: 09/26/24 01:52
Print Language: [place]ONG[place]
[2024-09-26 02:39] LABS: HCG, Serum Qualitative Screen Negative
== END 2024-09-26 01:52 | disposition home or self-care (01) ==
LOC: EMR 22:19
PROVIDERS: EMERGENCY PHYSICIAN Emergency Medicine; FAMILY PHYSICIAN Family Medicine Sports Medicine
DX: R55 Syncope and collapse (principal); R10.9 Unspecified abdominal pain; R11.0 Nausea; G90.A Postural orthostatic tachycardia syndrome [POTS]; I77.4 Celiac artery compression syndrome; K58.9 Irritable bowel syndrome, unspecified; Q79.60 Ehlers-Danlos syndrome, unspecified; F41.9 Anxiety disorder, unspecified; F32.A Depression, unspecified; G89.29 Other chronic pain; Z88.5 Allergy status to narcotic agent; Z88.8 Allergy status to other drugs, medicaments and biological substances; Z91.040 Latex allergy status
CPT/HCPCS: 99284; 80053; 81003; 84484; 84703; 85025; 93005

== ENCOUNTER 2024-10-11 06:08 | Emergency (ER) | payer BC, SELFPAY ==
[2024-10-11 06:10] VITALS: BP 116/84
[2024-10-11 07:07] VITALS: BMI 24.9
[2024-10-11 07:19] VITALS: BP 116/77
--- NOTE | 2024-10-11 07:40 | ED.GENMED ---
History of Present Illness
General
Chief Complaint: Abdominal Symptoms
Source: patient
Time Seen by Provider: 10/11/24 07:06
History of Present Illness
History of Present Illness:
23-year-old female with past medical history of POTS, IBS, anxiety and depression presenting to the emergency department for evaluation after she started with epigastric to right upper quadrant pain last night around 1030 accompanied with nausea and
continuous dry heaves but no vomitus and states had 4 loose bowel movements which is 8 for her given she is on chronic Zofran for her IBS/chronic nausea. 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
related to norovirus or other infectious etiology although she does note some of the symptoms she is experiencing are somewhat reminiscent of her chronic GI issues. Patient has been seen in this emergency department for similar in the past. She
has had 2 separate endoscopies with the last being within the last 1 to 2 years with no significant abnormalities found. Patient does note that symptoms started about an hour and a half or so after eating dinner last night. No known history of
gallbladder pathologies. Social history was otherwise noncontributory. Patient did not take anything for pain prior to arrival did take her Zofran with minimal relief.
Past History
Past History
ED Past Medical History: Other (POTS), Other (Kidney stones) and Other (Arcuate ligament syndrome, chronic abdominal pain)
ED Past Surgical History: Other (wisdom teeth)
Social History
Tobacco: Non-smoker
Alcohol: None
Drug: None
Personal: Single
Living: with family
Employment: Employed
Family History
Family History: Other (Gallstones)
Review of Systems
Review of Systems
All Other Systems: ROS reviewed and negative except as documented in HPI and ROS
Phy Exam
Physical Exam
Physical Exam:
GENERAL: Alert , in no apparent distress but does appear uncomfortable
EYE: clear conjunctiva b/l
HEAD: NCAT
ENT: o/p clr, mmm.
CARDIAC: Tachycardic rate, normal rhythm
LUNGS: Clear breath sounds bilaterally, no acute respiratory distress, no wheezes/rales/rhonchi
ABDOMEN: Soft, mild epigastric to RUQ ttp, no r/g, no cvat, negative salazar's sign
NEUROLOGICAL: Alert and oriented
SKIN: Warm and dry, skin intact.
MUSCULOSKELETAL: well perfused.
PSYCH: Normal and appropriate interaction.
Scores
Heart Failure Risk
Heart Failure Risk Score: Not Applicable
Heart Score for Chest Pain Patients
STEMI patient?: Not applicable
Withdrawal Assessment of Alcohol
Withdrawal Assessment Completed?: Not applicable
Course
Orders/Labs/Results
Orders:
Orders
10/11/24 06:12
Electrocardiogram (*1) Urgent
Reason for Study: Vertigo / Dizzy
EKG- Treatment ONCE
10/11/24 07:23
CMP [Comprehensive Metabolic Panel] Urgent
Complete Blood Count/With Diff Urgent
HCG, Serum Qualitative Screen Urgent
Lipase Urgent
10/11/24 07:32
HYDROmorphone [Dilaudid] 0.5 mg IV NOW STA
Ondansetron Injectable [Zofran] 4 mg IV NOW STA
Test Result ONCE
US Abdomen Complete/Upper Urgent
Comment:
Reason For Exam: epigastric/RUQ pain
10/11/24 09:08
Mag Hydrox/Al Hydrox/Simeth [Maalox] 30 ml Phenobarb/Hyoscy/Atropine/Scop [] 10 ml Viscous Lidocaine 2% [Xylocaine Viscous Cup] 10 ml PO NOW
10/11/24 09:34
Mag Hydrox/Al Hydrox/Simeth [Maalox] 30 ml .ROUTE .STK-MED ONE
Phenobarb/Hyoscy/Atropine/Scop [] 10 ml .ROUTE .STK-MED ONE
Viscous Lidocaine 2% [Xylocaine Viscous Cup] 15 ml .ROUTE .STK-MED ONE
10/11/24 10:03
HYDROmorphone [Dilaudid] 0.5 mg IV NOW STA
Abnormal Lab Results
10/11/24
07:23
WBC 11.6 H 10^3/uL
(4.8-10.8)
Absolute Neuts (auto) 10.6 H 10^3/uL
(1.4-6.5)
Absolute Lymphs (auto) 0.4 L 10^3/uL
(1.2-3.4)
Neutrophils % 91.8 H %
(42.2-75.2)
Lymphocytes % 3.5 L %
(20.5-51.1)
BUN 19 H mg/dl
(7-17)
Glucose 109 H mg/dl
(70-99)
10/11/24 07:23
10/11/24 07:23
Vital Signs
Initial and Last Documented VS:
Initial Vital Signs
Temp Pulse Resp BP Pulse Ox
98.4 F 137 16 116/84 100
10/11/24 06:10 10/11/24 06:10 10/11/24 06:10 10/11/24 06:10 10/11/24 06:10
Last Documented Vital Signs
Temp Pulse Resp BP Pulse Ox
98.4 F 101 16 113/80 97
10/11/24 06:10 10/11/24 10:30 10/11/24 06:10 10/11/24 10:00 10/11/24 10:30
MDM/Problems Addressed
Differential Diagnosis Includes:
GERD,gastritis, PUD, cholecystitis, symptomatic cholelithiasis, pancreatitis, acute on chronic exacerbation of unspecified abdominal pain
MDM/Problems Addressed:
23-year-old female presenting to the ER for evaluation of relatively acute onset of epigastric abdominal pain accompanied with nausea and 4 loose stools last night around 1030. Pain and nausea persisting. Arrives to the ER tachycardic. She has
reproducible epigastric pain on exam. Here for similar in the past. Has done well with Dilaudid and IV Zofran. Will check labs. Ultrasound ordered. Reassessment following
*Radiology
Radiology exam reviewed: radiology read reviewed
*Pulse Oximetry
Patient hypoxic: no
*Mail Sorting Supervisor Interpretation
Rate: tachycardiac
Rhythm: sinus
*Critical Care Note
Total Time (30-74mins, 75-104mins- exclusive of procedures): Not Applicable
Data Reviewed
Review of Other/Old Records Reveals: Labs, Records and Radiology Studies
Source: patient and records
Comment
Comment:
Patient's labs do show a mild leukocytosis of 11,000. Chemistry is unremarkable. Pending ultrasound study. Symptoms slightly improved. Will give a dose of green grabber for possible gastritis/duodenitis
Patient Management
Escalation/DeEscalation of care consider admission/obs:
Ultrasound shows no acute abnormalities. Patient still having some pain and discomfort. The pain is typical of her usual symptoms and I have minimal suspicion for an acute surgical abdomen. Patient has had 2 CT scans within the last year which
did not show any acute abnormalities. She is requesting an additional dose of Dilaudid as this is what has helped her in the past. Will treat with a dose of this, reassess with anticipation of discharging home and outpatient management.
Patient feeling better following additional medications. Aware of return precautions to the ER. Stable for discharge home.
ED Attending Note
-
Portions of this chart may have been created with voice recognition software.� Occasional wrong word or��sound alike� substitutions may have occurred due to the inherent limitations of voice recognition software.
Discharge Plan
Departure
Patient Disposition: Home (Routine Discharge)
Date of Disposition: 10/11/24
Time of Disposition: 11:05
Patient with high blood pressure during this ER visit?: No
Discharge Problem:
Abdominal pain
Instructions: Abdominal Pain
Prescriptions:
New
dicyclomine 20 mg tablet
20 mg PO BID PRN (Reason: abdominal pain) Qty: 10 0RF
No Action
ondansetron 8 mg Tablet,Disintegrating
8 mg PO Q8H PRN (Reason: nausea)
citalopram 20 mg Tablet
20 mg PO DAILY
buspirone 10 mg Tablet
10 mg PO BID
Vitamin B-12
1 tab PO DAILY
Vitamin D3
1 tab PO DAILY
vancomycin [Firvanq] 50 mg/mL Recon Soln
125 mg PO Q6 Qty: 150 0RF
Rx Instructions:
52 more doses to be taken
sucralfate [Carafate] 1 gram tablet
1 g PO ACHS Qty: 30 0RF
Referrals:
Scott Montgomery DO [Family Provider] -
Interventions
Interventions:
*Risk Screen - Suicide Last Done: 10/11/24 11:13
*General Assessment Last Done: 10/11/24 06:10
*Neglect/Abuse Screening Last Done: 10/11/24 06:10
ED- Fall Risk Assessment Last Done: 10/11/24 07:07
*ED COVID-19 Vaccine History Last Done: 10/11/24 06:10
*Nursing Disposition Last Done: 10/11/24 11:13
SC-Vxeiyp-Ryboilkrvq Assessment Last Done: 10/11/24 07:07
Discharge Date and Time
Discharge Date/Time: 10/11/24 11:14
Print Language: [place]
[2024-10-11 07:41] LABS: % Basophils 0.3 % (0-2); % Eosinophils 0.3 % (0-6); % Immature Granulocytes 0.3 % (0-0.5); % Lymphocytes 3.5 % (20.5-51.1); % Monocytes 3.8 % (1.7-9.3); % Neutrophils 91.8 % (42.2-75.2); Absolute Lymphocytes 0.4 10^3/uL (1.2-3.4); Absolute Monocytes 0.4 10^3/uL (0.1-0.6); Absolute Neutrophils 10.6 10^3/uL (1.4-6.5); Hematocrit 40.5 % (37.0-47.0); Hemoglobin 13.6 g/dL (12.0-16.0); Mean Corp Hgb Conc. 33.6 g/dL (33.0-37.0); Mean Corpuscular Hgb 27.7 pg (27.0-31.0); Mean Corpuscular Volume 82.5 fL (81.0-99.0); Mean Platelet Volume 9.4 fL (7.4-10.4); Nucleated Red Blood Cells % 0 %; Platelet Count 204 10^3/uL (130-400); Red Blood Cell Count 4.91 10^6/uL (4.20-5.40); Red Cell Dist. Width 12.1 % (11.5-14.5); White Blood Cell Count 11.6 10^3/uL (4.8-10.8)
[2024-10-11] MEDS: ZOFRAN 4 MG IV (07:43)
[2024-10-11] MEDS: DILAUDID 0.5 MG IV ×2 (07:43→10:08)
[2024-10-11 07:47] LABS: ALT (SGPT) 12 U/L (0-35); AST (SGOT) 20 U/L (14-36); Albumin 4.4 g/dl (3.5-5.0); Alkaline Phosphatase 67 U/L (38-126); Blood Urea Nitrogen 19 mg/dl (7-17); Calcium 8.9 mg/dl (8.4-10.2); Carbon Dioxide 24 mmol/L (22-30); Chloride 104 mmol/L (98-107); Estimated Creatinine Clearance > 125 ml/min; Glucose 109 mg/dl (70-99); Potassium 3.8 mmol/L (3.5-5.1); Sodium 138 mmol/L (135-145); Total Bilirubin 0.6 mg/dl (0.2-1.3); eGFR > 60.00
[2024-10-11 08:00] VITALS: BP 121/79
[2024-10-11 08:24] LABS: HCG, Serum Qualitative Screen Negative
[2024-10-11 09:12] LABS: Lipase 80 U/L (23-300)
[2024-10-11 09:37] VITALS: BP 105/73
[2024-10-11] MEDS: MAALOX 10 PO (09:39)
[2024-10-11 10:00] VITALS: BP 113/80
== END 2024-10-11 11:14 | disposition home or self-care (01) ==
LOC: EMR 06:08
PROVIDERS: Physician Assistant Medical; EMERGENCY PHYSICIAN Emergency Medicine; FAMILY PHYSICIAN Family Medicine Sports Medicine
DX: R10.13 Epigastric pain (principal); R11.0 Nausea; R10.11 Right upper quadrant pain; R00.0 Tachycardia, unspecified; G90.A Postural orthostatic tachycardia syndrome [POTS]; K58.9 Irritable bowel syndrome, unspecified; F32.A Depression, unspecified; F41.9 Anxiety disorder, unspecified; G89.29 Other chronic pain; Z87.442 Personal history of urinary calculi; Z88.5 Allergy status to narcotic agent; Z88.8 Allergy status to other drugs, medicaments and biological substances; Z91.040 Latex allergy status
CPT/HCPCS: 99285; 96374; 96375; 96376; 76700; 80053; 83690; 84703; 85025; 93005

== ENCOUNTER → 2025-04-11 06:42 | Outpatient (REF) | payer BC, SELFPAY | LOC: RAD 06:42 | PROVIDERS: ATTENDING PHYSICIAN Family Medicine Sports Medicine | DX: I77.4 Celiac artery compression syndrome (principal); R10.9 Unspecified abdominal pain | CPT/HCPCS: 74177; Q9967 ==

== ENCOUNTER 2025-07-09 20:14 | Emergency (ER) | payer SELFPAY ==
[2025-07-09 20:16] VITALS: BP 132/89
--- NOTE | 2025-07-09 22:38 | ED.GENMED ---
History of Present Illness
General
Chief Complaint: Eye Problems
Source: patient
Exam Limitations: none
Time Seen by Provider: 07/09/25 21:59
Nursing documentation reviewed up to this point in time: agreed with
History of Present Illness
History of Present Illness:
Note:
CHIEF COMPLAINT(S)
Exposure to saline flush tainted with gastrointestinal fluids during a medical procedure incident.
HISTORY OF PRESENT ILLNESS
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 She experienced an incident while flushing a patients gastrojejunal (GJ) tube. During the procedure, which occurred at approximately 7:30 a.m., there was no clamp on the
tube, and the patient coughed, causing a direct exposure of gastrointestinal fluids onto the patients face, including the eye. The patient reported that the fluid was primarily saline with some residual gastric contents, noting that it did smell
like vomit. The patient indicated she had rinsed her exposed eye with two saline flushes immediately following the incident. The patient denied any pain or blurred vision and did not ingest any of the fluid orally. The patient expressed concern due
to the known drug-resistant organisms in the patient whose GJ tube was being flushed, specifically ESBL (Extended-Spectrum Beta-Lactamase), VRE (Vancomycin-Resistant Enterococcus), and Izabela.
The patient has a history of multiple autoimmune diseases, which she mentioned but did not specify during the conversation.
PROBLEM LIST
Acute problem:
- Exposure to gastrointestinal fluids with potential infectious and chemical risk
CHRONIC MEDICAL CONDITIONS SIGNIFICANTLY AFFECTING CARE
The patient mentioned having four autoimmune diseases.
PHYSICAL EXAM
General: Alert, no acute distress.
Skin: Warm, dry.
Head: Normocephalic, atraumatic.
Neck: Supple, trachea midline.
Eye Ears, nose, mouth and throat: Oral mucosa moist.
Cardiovascular: Normal peripheral perfusion, No edema.
Respiratory: Respirations are non-labored.
Gastrointestinal: Abdomen nondistended
Back: Normal range of motion, Normal alignment.
Musculoskeletal: Normal ROM, normal strength.
Neurological: Alert and oriented to person, place, time, and situation, No focal neurological deficit observed.
Psychiatric: Cooperative, appropriate mood & affect.
PLAN
The plan was not specifically discussed in the transcript. However, appropriate measures might include monitoring for symptoms of infection due to the exposure, particularly given the known presence of drug-resistant organisms in the source patient.
Additionally, assurance and appropriate ocular care, including rinsing the eye, were completed by the patient.
DIFFERENTIAL DIAGNOSIS
The Differential Diagnosis includes, in no particular order and is not limited to:
- Chemical conjunctivitis
- Infectious conjunctivitis
- Eye irritation
- Allergic conjunctivitis
- Lacrimal gland infection
- Trauma from foreign body in the eye
- Autoimmune-related eye symptoms (given patients history)
- Skin infection on face
- Mucosal irritation in oral or nasal linings
- Stress reaction to exposure
Disposition:
SUMMARY OF ENCOUNTER
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 While flushing a gastrojejunal tube, a patient coughed, causing the fluid to spray into
the patients eye. She was concerned due to the exposure to drug-resistant organisms. She immediately rinsed her eye copiously with saline. She has no symptoms and expressed significant concern about potential infections due to her autoimmune
diseases.
DISPOSITION
Discharge.
ASSESSMENT
Considering the primary exposure was to saline, it was deemed a non-significant exposure. Patient�s self-care post-exposure was appropriate.
PLAN
The patient will monitor for any symptoms of infection and will follow up should any arise. Eye care with saline was completed post-exposure, and the risk of infection is considered low due to the limited exposure to gastric contents.
MEDICAL DECISION MAKING
-Complexity of Data Reviewed: Chronic conditions affecting care include the patients history of multiple autoimmune diseases. Differential diagnosis includes chemical conjunctivitis, infectious conjunctivitis, eye irritation, allergic
conjunctivitis, lacrimal gland infection, trauma from a foreign body in the eye, autoimmune-related eye symptoms, skin infection on face, mucosal irritation in oral or nasal linings, stress reaction to exposure.
-Risk: The patient is discharged with instructions for monitoring symptoms. Considering that the exposure was mostly saline, no escalation of care is needed. The plan for discharge was made with reassurance that the patient�s symptoms are
controlled, and the exposure is not life-threatening given the circumstances.
Past History
Past History
ED Past Medical History: Other (POTS), Other (Kidney stones) and Other (Arcuate ligament syndrome, chronic abdominal pain)
ED Past Surgical History: Other (wisdom teeth)
Social History
Tobacco: Non-smoker
Alcohol: None
Drug: None
Personal: Single
Living: with family
Employment: Employed
Family History
Family History: Other (Gallstones)
Phy Exam
Physical Exam
Physical Exam:
.
Course
Vital Signs
Initial and Last Documented VS:
Initial Vital Signs
Temp Pulse Resp BP Pulse Ox
97.9 F 93 14 132/89 97
07/09/25 20:16 07/09/25 20:16 07/09/25 20:16 07/09/25 20:16 07/09/25 20:16
Last Documented Vital Signs
Temp Pulse Resp BP Pulse Ox
97.9 F 93 14 132/89 97
07/09/25 20:16 07/09/25 20:16 07/09/25 20:16 07/09/25 20:16 07/09/25 22:39
*Pulse Oximetry
SaO2: 97
Oxygen Mode of Delivery: Room air
Patient hypoxic: no
*Critical Care Note
Total Time (30-74mins, 75-104mins- exclusive of procedures): Not Applicable
ED Attending Note
-
Portions of this chart may have been created with voice recognition software.� Occasional wrong word or��sound alike� substitutions may have occurred due to the inherent limitations of voice recognition software.
Discharge Plan
Departure
Patient Disposition: Home (Routine Discharge)
Date of Disposition: 07/09/25
Time of Disposition: 22:32
Patient with high blood pressure during this ER visit?: No
Condition: Fair
Discharge Problem:
Chemical exposure of eye
Instructions: How to Care for Your Eyes, BLOOD PRESSURE
Prescriptions:
No Action
ondansetron 8 mg Tablet,Disintegrating
8 mg PO Q8H PRN (Reason: nausea)
citalopram 20 mg Tablet
20 mg PO DAILY
buspirone 10 mg Tablet
10 mg PO BID
Vitamin B-12
1 tab PO DAILY
Vitamin D3
1 tab PO DAILY
vancomycin [Firvanq] 50 mg/mL Recon Soln
125 mg PO Q6 Qty: 150 0RF
Rx Instructions:
52 more doses to be taken
sucralfate [Carafate] 1 gram tablet
1 g PO ACHS Qty: 30 0RF
dicyclomine 20 mg tablet
20 mg PO BID PRN (Reason: abdominal pain) Qty: 10 0RF
Referrals:
Scott Montgomery DO [Family Provider, Family Practice]
Activity Restrictions/Additional Instructions:
Thank You for choosing [facility].
It was a pleasure meeting you and taking part in your care. We hope for your continued healing and wellness.
Please read discharge instructions in their entirety. However, they are for general education and may not describe your exact diagnosis at discharge. Information on your ER visit and medical conditions were discussed with you along with appropriate
follow up information...
If indicated, please take your medications as instructed and indicated on discharge paperwork.
Please schedule a follow up appointment as directed. Call to schedule an appointment
Please return to the emergency department with ANY change in, persisting, or worsening of symptoms. If any of your symptoms do not improve, or persist, or become more severe within 6-12 hours, please return to the emergency department for further
care.
Please return to the emergency department if you develop a headache, neck pain/stiffness, fever greater than 100.4F, chest pain, shortness of breath, persistent nausea, vomiting, slurred speech, difficulty walking, numbness/tingling, weakness, signs
of infection or any other symptoms that are worrisome to you.
If you have any questions or concerns please do not hesitate to call the Hospital at .
Interventions
Interventions:
*Risk Screen - Suicide Last Done: 07/09/25 20:16
*General Assessment Last Done: 07/09/25 20:16
*Neglect/Abuse Screening Last Done: 07/09/25 20:16
*ED- Fall Risk Assessment Last Done: 07/09/25 22:13
*ED COVID-19 Vaccine History Last Done: 07/09/25 20:16
*ED Influenza Vaccine History Last Done: 07/09/25 20:16
*Nursing Disposition Last Done: 07/09/25 22:45
Discharge Date and Time
Discharge Date/Time: 07/09/25 22:45
Print Language: BENGALI
== END 2025-07-09 22:45 | disposition home or self-care (01) ==
LOC: EMR 20:14
PROVIDERS: EMERGENCY PHYSICIAN Student in an Organized Health Care Education/Training Program; FAMILY PHYSICIAN Family Medicine Sports Medicine
DX: Z77.098 Contact with and (suspected) exposure to other hazardous, chiefly nonmedicinal, chemicals (principal); G90.A Postural orthostatic tachycardia syndrome [POTS]; I77.4 Celiac artery compression syndrome
CPT/HCPCS: 99282

== ENCOUNTER → 2025-09-25 11:50 | Outpatient (REF) | payer BC, SELFPAY | LOC: RAD 11:50 | PROVIDERS: ATTENDING PHYSICIAN Family Medicine Sports Medicine | DX: J18.0 Bronchopneumonia, unspecified organism (principal) | CPT/HCPCS: 71046 ==